=== PATIENT | female | born 1960 | race Caucasian/White ===

== ENCOUNTER 2018-07-30 00:08 | Emergency (ER) | payer OTHER ==
[~2018-07-30] VITALS: Ht 172.7 cm; Wt 74.8 kg
[~2018-07-30 00:08] MED LIST: AMLO5TAB4 PO; ATOR10TA PO; HYDR25TA4 PO; LOSA50TA39 PO
[2018-07-30] MEDS ORDERED: GUAIFENESIN/CODEINE 5 ML LIQUID UDC PO ONE (00:45)
[2018-07-30] MEDS ORDERED: GUAIFENESIN/CODEINE 5 ML LIQUID UDC ONE (00:48)
[2018-07-30] MEDS ORDERED: LEVOFLOXACIN 500 MG TABLET ONE (01:28)
[2018-07-30] MEDS ORDERED: predniSONE 10 MG TABLET ONE (01:28)
[2018-07-30] MEDS ORDERED: predniSONE 50 MG TABLET ONE (01:28)
[2018-07-30] MEDS ORDERED: LEVOFLOXACIN 500 MG TABLET PO ONE (01:30)
[2018-07-30] MEDS ORDERED: predniSONE 20 MG TABLET PO ONE (01:30)
--- NOTE | 2018-07-30 01:30 | NUR ---
Patient discharged to home in stable conditon. Written and verbal after care instructions given. Patient verbalizes understanding of instructions.
== END 2018-07-30 01:31 | disposition home or self-care (01) ==
LOC: ER 00:10
DX: J40 Bronchitis, not specified as acute or chronic (principal); Z71.6 Tobacco abuse counseling; I10 Essential (primary) hypertension; F17.290 Nicotine dependence, other tobacco product, uncomplicated; Z90.89 Acquired absence of other organs; Z88.1 Allergy status to other antibiotic agents; Z79.899 Other long term (current) drug therapy
CPT/HCPCS: 71045; 99284; 99406; J7512 ×2; A4663

== ENCOUNTER 2018-09-01 22:36 | Emergency (ER) | payer OTHER ==
[~2018-09-01] VITALS: Ht 172.7 cm; Wt 75.7 kg
--- NOTE | 2018-09-01 23:00 | NUR ---
Pt. ambulated into ED w/ c/o pain d/t 3cm superficial open wound on R butler surrounded by reddish skin and 2cm superficial open wound on L lower thigh surrounded by reddish skin, pt. is homeless and noticed the lesions 4 days ago,
[2018-09-01] MEDS ORDERED: SULFAMETH/TRIMETH 800/160 MG TABLET PO ONE (23:15)
[2018-09-01] MEDS ORDERED: SULFAMETH/TRIMETH 800/160 MG TABLET ONE (23:15)
[2018-09-01] MEDS ORDERED: CEphaleXIN 500 MG CAPSULE PO ONE (23:15)
[2018-09-01] MEDS ORDERED: CEphaleXIN 500 MG CAPSULE ONE (23:15)
--- NOTE | 2018-09-01 23:49 | NUR ---
Patient discharged to home in stable conditon. Written and verbal after care instructions given. Patient verbalizes understanding of instructions. Pt. d/c w/ prescription per MD, d/c papers signed, homeless patient waiver form signed, all belongings w/ pt., dressed bilat. LE wounds, pt. ambulated out of ED w/ steady gait, NAD,
== END 2018-09-01 23:51 | disposition home or self-care (01) ==
LOC: ER 22:38
DX: L97.129 Non-pressure chronic ulcer of left thigh with unspecified severity (principal); L97.919 Non-pressure chronic ulcer of unspecified part of right lower leg with unspecified severity; L08.9 Local infection of the skin and subcutaneous tissue, unspecified; I10 Essential (primary) hypertension; F17.290 Nicotine dependence, other tobacco product, uncomplicated; Z88.1 Allergy status to other antibiotic agents; Z79.899 Other long term (current) drug therapy; Z90.89 Acquired absence of other organs
CPT/HCPCS: A4663

== ENCOUNTER 2025-05-23 02:16 | Emergency (ER) | payer OTHER ==
[~2025-05-23] VITALS: Ht 172.7 cm; Wt 72.6 kg
[2025-05-23 02:42] VITALS: BP 167/133
[2025-05-23 03:02] LABS: *BILIRUBIN,URIN NEGATIVE (NEGATIVE); *BLOOD, URINE 3+ (NEGATIVE); *CLARITY,URINE TURBID (CLEAR); *COLOR,URINE YELLOW (YELLOW); *KETONES,URINE NEGATIVE (NEGATIVE); *PROTEIN,URINE 3+ (NEGATIVE); *UROBILINOGEN,URINE 0.2 E.U./dl (NORMAL); LEUKOCYTE ESTERASE ,URINE 2+ (NEGATIVE); NITRITE, URINE NEGATIVE (NEGATIVE); UGLUCOSE NEGATIVE (NEGATIVE)
[2025-05-23] MEDS ORDERED: NITROFURANTOIN/NITROFURAN MAC 100 MG CAPSULE PO ONE (03:15)
[2025-05-23] MEDS ORDERED: NITR-84 PO (03:15)
[2025-05-23] MEDS ORDERED: PHENAZOPYRIDINE HCL 100 MG TABLET ONE (03:16)
[2025-05-23] MEDS: PHENAZOPYRIDINE HCL 100 MG TABLET PO ONE (03:17)
[2025-05-23] MEDS: NITROFURANTOIN/NITROFURAN MAC 100 MG CAPSULE PO ONE (03:17)
[2025-05-23] MEDS ORDERED: PHEN-705 PO (03:22)
[2025-05-23 03:57] LABS: SQUAMOUS EPITHELIAL CELL,UR FEW /HPF (NONE SEEN)
[2025-05-23 07:18] VITALS: BP 167/133; O2SAT 96
== END 2025-05-23 03:40 | disposition home or self-care (01) ==
LOC: ER 02:45
DX: N39.0 Urinary tract infection, site not specified (principal); F17.200 Nicotine dependence, unspecified, uncomplicated; E11.9 Type 2 diabetes mellitus without complications; Z79.899 Other long term (current) drug therapy; Z88.1 Allergy status to other antibiotic agents; Z88.7 Allergy status to serum and vaccine; Z90.89 Acquired absence of other organs; Z98.51 Tubal ligation status
CPT/HCPCS: 87077; 87086; A4606; A4663